=== PATIENT | female | born 2000 | race Caucasian/White ===

== ENCOUNTER 2019-05-23 14:42 | Emergency (ER) | payer BC, OTHER, SELFPAY ==
[2019-05-23 14:44] VITALS: BP 133/75; PULSE 70; RESP 18; TEMP 36.1; O2SAT 99; BMI 20.9
--- NOTE | 2019-05-23 15:05 | ED.DCSUM_ITS ---
- ER Visit Summary Date of Service: 05/23/19 Chief Complaint: Diarrhea History of Present Illness: The patient is a 18 F with diarrhea for the past 5 days. Patient has occasional lower abdominal cramps. She had some nausea and only one episode of vomiting. She reports decreased oral intake. Her diarrhea is nonbloody with liquid stool. She had antibiotics 3 weeks ago for an ear infection. She is otherwise healthy. Physical Examination: Afebrile and vital signs unremarkable. Alert and oriented. No acute distress. Mucous memories are moist. Heart regular. Lungs clear. Abdomen soft. Back is nontender. Test Results: Labs and urine testing pending. C. difficile testing pending. Emergency Department Course and Treatment: Patient was treated with fluids and Zofran while awaiting results. Patient stable on reevaluation. Labs were all unremarkable. Urine test negative. C. difficile was collected and is pending. Patient will be treated with Flagyl to cover for C. difficile diarrhea. She will call for her results. If her testing is negative, she may stop taking Flagyl. Zofran as needed for nausea. Stay hydrated. Follow-up with primary care. Return if new or worsening issues develop. Treatment Plan: As above Disposition: Discharge Impression: Diarrheal illness This note was generated with [employer] dictation software. It may contain incorrect words, spelling, and punctuation that were not noted in review of the chart prior to signing
[2019-05-23 15:59] LABS: Absolute Lymphocyte Count 1.53 X10^3/uL (0.83-4.51); Absolute Neutrophil Count 2.4 X10^3/uL (2.0-7.7); Basophil# 0.03 X10^3/uL; Basophil% 0.7 % (0-1); Eosinophil# 0.07 X10^3/uL; Eosinophils% 1.6 % (0-5); Hematocrit 47.7 % (37-47); Hemoglobin 15.7 g/dL (12.0-15.0); Lymphocyte # 1.53 X10^3/ul (4.0); Lymphocyte % 34.2 % (19-41); Mean Corp Hgb Conc 32.9 g/dL (32-36); Mean Corpuscular Hgb 27.9 pg (27.0-32.0); Mean Corpuscular Volume 84.7 fL (81-99); Monocyte# 0.45 X10^3/uL; NRBC Flagged by Analyzer 0 % (0-5); Neutrophil # 2.39 X10^3/uL (2.7-7.7); Neutrophil % 53.3 % (47-70); POSITIVE MORPHOLOGY YES; Platelet Count 163 K/mm3 (150-450); RBC Distribution Width CV 12.5 % (11.6-14.6); RBC Distribution Width SD 38.6 fl (35.1-43.9); Red Blood Count 5.63 M/mm3 (4.2-5.4); White Blood Count 4.5 K/mm3 (4.4-11.0)
[2019-05-23 16:06] LABS: Color, Urine Yellow (Yellow); Glucose, Dipstick Normal (Normal); Ketone-Dipstick 15 mg/dl (Negative); Leukocyte Esterase-Dipstick 25 /ul (Negative); Nitrite-Dipstick Negative (Negative); Occult Blood-Urine Negative /ul (Negative); Protein-Dipstick 30 mg/dl (Negative); Urine Clarity Sl. Cloudy (Clear); Urine Urobilinogen 1 mg/dl (Normal)
[2019-05-23] MEDS: 0.9% Normal Saline 1,000 ML 1000 ML IV (16:07)
[2019-05-23] MEDS: Ondansetron 4 MG/2 ML Vial IV (16:07)
[2019-05-23 16:10] LABS: Urine Bilirubin Dipstick 1 mg/dL (Negative)
[2019-05-23 16:11] VITALS: RESP 17
[2019-05-23 16:16] VITALS: TEMP 36.6
[2019-05-23 16:16] LABS: ALB/GLOB Ratio 0.9 RATIO (0.9-2.4); AST(SGOT) 33 U/L (15-37); Alanine Aminotransfer ALT/SGPT 26 U/L (13-56); Albumin, Serum 3.6 g/dL (3.2-5.0); Alkaline Phosphatase 76 U/L (45-117); Anion Gap 5 (5-15); BUN 12 mg/dL (7-18); Calcium,Total 8.9 mg/dL (8.5-10.1); Chloride 104 mmol/L (98-107); Creatinine, Serum 0.92 mg/dL (0.55-1.02); EST Glomerular Filtration Rate 82 mL/min (>60); Est Glom Filt Rate - Afr Amer 99 mL/min (>60); Estimated Creatinine Clearance 96.09 ml/min; Globulin 4.1 g/dL (2.2-4.2); Glucose 79 mg/dL (74-106); Lipase 120 U/L (73-393); Potassium 3.6 mmol/L (3.5-5.1); Protein, Total 7.7 g/dL (6.4-8.2); Sodium Level 138 mmol/L (136-145)
[2019-05-23 16:20] LABS: Internal QC Validated? YES +Cl - CLEAR BKGD; Pregnancy, Serum, hCG Quali. NEGATIVE Negative
[2019-05-23 16:31] LABS: Bacteria 1+ /hpf (None Seen); Differential Indicated SCAN CRITERIA MET; Mucous, Urine 3+ /hpf (<or=2+); Red Blood Cells-Urine 0-5 SEEN /hpf (0-5); Squamous Epithelial Cells - UA 0-5 SEEN /hpf (5-10); White Blood Cells 0-5 SEEN /hpf (0-5)
--- NOTE | 2019-05-23 16:38 | ED.DEP ---
ED Disposition - Plan for ED Patient: Instructions: VOMITING AND DIARRHEA, Nonspecific (Adult) Prescriptions: metroNIDAZOLE [Flagyl] 500 mg PO Q8H 14 Days #42 tab Prescription Printed Ondansetron [Zofran Odt] 4 mg PO Q8H PRN PRN #10 tab PRN Reason: Nausea Prescription Printed Additional Instructions: Flagyl 3 times a day for 2 weeks. Zofran as needed for nausea. Stay hydrated. Follow-up with your doctor or medical records for results of C. difficile testing. You may discontinue the Flagyl if the testing is negative.
[2019-05-23 16:46] VITALS: BP 108/77; PULSE 62; RESP 15; O2SAT 98
[2019-05-23 16:57] LABS: Atypical Lymphocyte RARE %; Differential Comment SCANNED
--- NOTE | 2019-05-23 19:59 | ED.RN ---
THIS RN CONTACTED PT TO INFORM HER OF POSITIVE C-DIFF. PT ALREADY STARTED ON ANTIBIOTICS ON D/C. PT TO COMPLETE ANTIBIOTIC COURSE AND FOLLOW UP WITH PCP.
== END 2019-05-23 16:48 | disposition home or self-care (01) ==
LOC: ED 15:42
PROVIDERS: Emergency Provider Emergency Medicine
DX: R19.7 Diarrhea, unspecified (principal); R11.2 Nausea with vomiting, unspecified; R10.9 Unspecified abdominal pain; R50.9 Fever, unspecified
CPT/HCPCS: 80053; 81001; 83690; 84703; 85025; 87493; 96361; 96374; 99283; J7030; A4216; J2405

== ENCOUNTER → 2020-06-02 13:12 | Outpatient (CLI) | payer BC, SELFPAY | PROVIDERS: Visit Provider Obstetrics & Gynecology | DX: Z12.4 Encounter for screening for malignant neoplasm of cervix (principal) | CPT/HCPCS: 87491; 87591; 88175; G0145 ==